=== PATIENT | female | born 1940 | race Caucasian/White ===

== ENCOUNTER 2020-09-18 18:24 | Emergency (ER) | payer BC, SELFPAY ==
[2020-09-18 18:32] VITALS: BP 156/70; PULSE 86; RESP 16; TEMP 36.9; O2SAT 98; BMI 25.3
[2020-09-18 22:00] VITALS: BP 147/70; PULSE 70; RESP 16; TEMP 36.5; O2SAT 96
--- NOTE | 2020-09-18 23:45 | PC.NURSE ---
at bedside for wound repair.
--- NOTE | 2020-09-19 | PC.NURSE ---
Wound to upper lip repaired with 7 stitches, aware of plan to DC home.
--- NOTE | 2020-09-19 00:06 | ED.GENADULT ---
HPI - General Adult General Chief complaint: Fall Stated complaint: fall - mouth lac Time Seen by Provider: 09/18/20 23:30 Source: patient Mode of arrival: EMS Limitations: no limitations History of Present Illness HPI narrative: 80-year-old female who presents emergency department for evaluation of a laceration to her upper lip after a fall at home. The patient states she was stepping over the dog gate when her back foot got caught causing her to fall forward onto her face. She states she felt onto a tile floor and shipped her front tooth. She also cut her upper lip. She denied any loss of consciousness. She states that the lip was bleeding profusely therefore she came to the hospital for evaluation. Since the injury, she has had no complaints. She denied headache, nausea, vomiting, numbness or weakness. She states her tetanus status is up-to-date. Related Data Allergies Allergy/AdvReac Type Severity Reaction Status Date / Time No Known Allergies Allergy Verified 09/18/20 18:36 Review of Systems Review of Systems: Yes all other systems are reviewed and are negative Neurologic: Reports Abnormal speech present [facility] Past Medical History [facility] Narrative: The patient lives at home. She denies tobacco use. She states she drinks 1 glass of wine at night. She denies drug use. Medical History HTN (hypertension) Social History Social History Advance Directives: No Physical Exam Vital Signs: Vital Signs: Last Vital Signs Temp 97.7 F 09/18/20 22:00 Pulse 70 09/18/20 22:00 Resp 16 09/18/20 22:00 BP 147/70 H 09/18/20 22:00 Pulse Ox 96 09/18/20 22:00 Body Mass Index 25.3 Const: General: cooperative Orientation/consciousness: oriented to person and oriented to place Limitations: no limitations HENMT: Head: Yes normocephalic and Yes atraumatic Ears: hearing grossly normal bilaterally General nose exam: Normal external nose present Mouth: Normal oral and palatal mucosa present and lip abnormal (1.5 cm U shaped flap laceration to upper lip, center) Teeth and gingiva: other (The patient wears dentures, she has a chipped dentures) Throat: Yes posterior oropharynx normal Eyes: General: appearance normal, both eyes and all related structures Alignment and Position: alignment normal Eyelids: Yes eyelids normal Conjunctivae: conjunctivae normal Sclerae: sclerae normal Corneas: corneas normal Pupils: Equal, round and reactive pupils present EOM: EOMs intact bilaterally Neck: Neck: Yes normal visual inspection Neuro: General: oriented to person and oriented to place Cranial nerves: Yes CN's II-XII intact bilaterally and Yes Equal, round and reactive pupils present Cognition (Neuro): normal cognition Speech: Abnormal speech present Gait exam (Neuro): Normal gait present Motor exam (neuro): 5/5 motor strength present throughout Course Course Course Narrative: 80-year-old female who presents emergency department for evaluation of upper lip laceration after a trip and fall at home. The patient had no loss of consciousness and has been no symptoms since the fall therefore I did not get a CT scan of the head on this patient. The patient's laceration was repaired with seven, 5.0 Vicryl Rapide sutures. The patient tolerated the procedure well. Bacitracin was applied to the lip and the patient was advised to apply bacitracin twice a day for 7 days . I told the the sutures should dissolve in 7 days and if they are still intact then she should see her doctor to have the sutures removed. Procedures Laceration Upper lip laceration: Site: lip (U shaped upper lip laceration, center) Size (cm): 1.5 Description: flap Depth: simple, single layer Local Anesthetic: lidocaine 1% and with epi Amount of anesthesia used (mL): 3 Pre-repair: wound explored Skin layer closed with: other (Vicryl Rapide) Size (cm): 5-0 Number of sutures: 7 Technique: simple, interrupted
[2020-09-19 00:08] VITALS: BP 157/67; PULSE 63; RESP 16; O2SAT 98
[2020-09-19] MEDS: Bacitracin Oint 14 GM TUBE 1 APPL TOPICAL (00:21)
--- NOTE | 2020-09-19 00:21 | PC.NURSE ---
ABX ointment applied to lip, pt provided with DC isntructions. VSS.
== END 2020-09-19 00:24 | disposition home or self-care (01) ==
PROVIDERS: Emergency Provider Emergency Medicine Emergency Medical Services; PCP Internal Medicine
DX: S01.511A Laceration without foreign body of lip, initial encounter (principal); W18.00XA Striking against unspecified object with subsequent fall, initial encounter; Y93.9 Activity, unspecified; Y92.009 Unspecified place in unspecified non-institutional (private) residence as the place of occurrence of the external cause; Y99.9 Unspecified external cause status
CPT/HCPCS: 12011; 99284

== ENCOUNTER 2021-03-23 08:59 | Outpatient (REF) | payer BC, SELFPAY ==
--- NOTE | ~2021-03-23 | MM_ITS ---
EXAMINATION: MM SCREENING DIGITAL BREAST TOMOSYNTHESIS, BILATERAL CLINICAL INFORMATION: Screening. Asymptomatic. The lifetime risk of breast cancer based on the Tyrer-Cuzick Model is 2%. COMPARISON: Mammography: 03/10/2020, 01/12/2019, 12/24/2017 TECHNIQUE: Digital breast tomosynthesis is performed in both the craniocaudal and mediolateral oblique views along with computer-aided detection (CAD). Synthesized 2D images are generated from the tomosynthesis. Additional left MLO view is provided. FINDINGS: There are scattered areas of fibroglandular density (ACR BI-RADS breast composition Category b). There are no significant masses, abnormal calcifications, or other abnormalities. Parenchymal pattern is similar to prior studies. There is no developing density. No significant changes. MM/MM tomosynthesis screening BI IMPRESSION: No mammographic evidence of malignancy. ASSESSMENT: BI-RADS 1: Negative RECOMMENDATION: Routine annual mammography screening. This patient's information was entered into a reminder system with a target due date for their next mammogram.
== END 2021-03-23 09:00 | disposition home or self-care (01) ==
LOC: HO.MAMMO 08:59
PROVIDERS: PCP Internal Medicine; Visit Provider Internal Medicine
DX: Z12.31 Encounter for screening mammogram for malignant neoplasm of breast (principal)
CPT/HCPCS: 77063; 77067

== ENCOUNTER 2021-05-23 10:18 | Outpatient (REF) | payer BC, SELFPAY ==
--- NOTE | ~2021-05-23 | MM_ITS ---
EXAMINATION: BONE DENSITOMETRY CLINICAL INDICATION: Osteopenia. COMPARISON: Previous BD dated 11/03/2015 and baseline BD dated 10/18/2009. TECHNIQUE: Using a FID3 DXA System (software version: 13.1) manufactured by [employer], dual-energy x-ray absorptiometry was performed of the lumbar spine and left hip. The images are of good technical quality. Summary results are attached. FINDINGS: AP SPINE L1-L2 (excluding L3 and L4): The data of L1-L4 has been changed to exclude the L3 and L4 vertebral bodies, because degenerative changes at these levels may cause overestimation of lumbar spine density. Current: BMD 0.930 g/cm2, Z-score -0.4, T-score -2.0, osteopenia, 8.3% increase from previous, 4.3% decrease from baseline (<5% change is not significant). Prior: BMD 0.859 g/cm2. Baseline: BMD 0.972 g/cm2. LEFT FEMUR, NECK: Current: BMD 0.820 g/cm2, Z-score 0.4, T-score -1.6, osteopenia. Prior: BMD 0.740 g/cm2. Baseline: BMD 0.862 g/cm2. LEFT FEMUR, TOTAL: Current: BMD 0.766 g/cm2, Z-score -0.2, T-score -1.9, osteopenia, 5.1% increase from previous, 5.3% decrease from baseline (<5% change is not significant). Prior: BMD 0.729 g/cm2. Baseline: BMD 0.809 g/cm2. IDENTIFIED RISK FACTORS: Height loss, menopause. HISTORY OF FRACTURE: None listed. MEDICATIONS: Calcium or multivitamin. MM/XR DEXA axial skeleton IMPRESSION: 1. DIAGNOSIS: Osteopenia based on the lowest T-score value of -2.0 in the lumbar spine applying World Health Organization criteria. 2. 10-YEAR FRACTURE RISK PREDICTION, FRAX: Major osteoporotic fracture (clinical spine, forearm, hip or shoulder) 13.9%. Hip fracture 3.4%. 3. Treatment Recommendations: NOF guidelines recommend consideration for treatment in postmenopausal women and men age 50 and older presenting with the following: -A hip or vertebral (clinical or morphometric) fracture. -T-score less than or equal to -2.5 at the femoral neck or spine after appropriate evaluation to exclude secondary causes. -Low bone mass at the hip or spine and a 10-year fracture probability by FRAX of greater than or equal to 3% for hip fracture or greater than or equal to 20% for major osteoporotic fracture based on the [place] adapted WHO algorithm. 4. Other Recommendations: All treatment decisions require clinical judgment and consideration of individual patient factors, including patient preferences, comorbidities, previous drug use, risk factors not captured in the FRAX model (e.g. frailty, falls, vitamin D deficiency, increased bone turnover, interval significant decline in bone density) and possible under or overestimation of fracture risk by FRAX. Additional medical evaluation for secondary cause of low bone mineral density may be appropriate. FUTURE SCAN RECOMMENDATION: People with diagnosed cases of osteoporosis or at high risk for fracture should have regular bone mineral density tests. For patients eligible for Medicare, routine testing is allowed once every 2 years. The testing frequency can be increased to one year for patients who have rapidly progressing disease, those who are receiving or discontinuing medical therapy to restore bone mass, or have additional risk factors.
== END 2021-05-23 10:19 | disposition home or self-care (01) ==
LOC: HO.MAMMO 10:18
PROVIDERS: PCP Internal Medicine; Visit Provider Internal Medicine
DX: Z13.820 Encounter for screening for osteoporosis (principal); Z78.0 Asymptomatic menopausal state; M85.80 Other specified disorders of bone density and structure, unspecified site
CPT/HCPCS: 77080

== ENCOUNTER 2022-04-09 11:53 | Outpatient (REF) | payer BC, SELFPAY ==
--- NOTE | ~2022-04-09 | MM_ITS ---
EXAMINATION: MM SCREENING DIGITAL BREAST TOMOSYNTHESIS, BILATERAL CLINICAL INFORMATION: Screening. Asymptomatic. The lifetime risk of breast cancer based on the Tyrer-Cuzick Model is 2%. COMPARISON: Mammography: 03/23/2021, 03/10/2020, 01/12/2019 TECHNIQUE: Digital breast tomosynthesis is performed in both the craniocaudal and mediolateral oblique views along with computer-aided detection (CAD). Synthesized 2D images are generated from the tomosynthesis. FINDINGS: There are scattered areas of fibroglandular density (ACR BI-RADS breast composition Category b). There are no significant masses, abnormal calcifications, or other abnormalities. Parenchymal pattern is similar to prior studies. There is no developing density or architectural abnormality. The axilla and skin contours are unremarkable. No significant changes. MM/MM tomosynthesis screening BI IMPRESSION: No mammographic evidence of malignancy. ASSESSMENT: BI-RADS 1: Negative RECOMMENDATION: Routine annual mammography screening. This patient's information was entered into a reminder system with a target due date for their next mammogram.
== END 2022-04-09 11:54 | disposition home or self-care (01) ==
LOC: HO.MAMMO 11:53
PROVIDERS: PCP Internal Medicine; Visit Provider Internal Medicine
DX: Z12.31 Encounter for screening mammogram for malignant neoplasm of breast (principal)
CPT/HCPCS: 77063; 77067

== ENCOUNTER → 2023-08-22 08:50 | Outpatient (AMB) | payer BC, SELFPAY ==
--- NOTE | 2023-08-22 11:01 | AM.OFFWIN_ITS ---
Intake Vital Signs 08/22/23 11:12 Weight 163 lb BP 126/60 Blood Pressure Location Lt brachial Position Sitting Pulse 79 Pulse Source Pulse Oximeter Temp 97.7 F Temp Source Oral Pulse Oximetry (%) 96 Oxygen Delivery Method Room Air Intake Visit Reasons: EST/right arm pain from pneumonia vaccine Intake Note: pt is here today for rt arm pain from pneumonia vaccine started Patient Tobacco Use Status: Never used Tobacco Allergies No Known Allergies Allergy (Verified 08/22/23 11:16) Do you need a note to return to daycare/school/sports/work: No HPI EST/right arm pain from pneumonia vaccine HPI Details This is an 82 year-old female patient who presents today for a sick visit. She reports a 2 week history of productive cough, particularly at nighttime. She has been trying Mucinex for this. She denies any fever or chills. She also reports a sore left arm since Saturday, after she had the pneumonia vaccine. She has taken some Tylenol for this, and recently started applying some ice. Denies any rash, redness or warmth of site. Denies any s/e of vaccine other than this. [facility] Medical History HTN (hypertension) Social History Patient Tobacco Use Status: Never used Tobacco Review of Systems Const All systems reviewed & are unremarkable except as noted in HPI and below Physical Exam Vital Signs: Last Vital Signs Temp 97.7 F 08/22/23 11:12 Pulse 79 08/22/23 11:12 BP 126/60 08/22/23 11:12 Pulse Ox 96 08/22/23 11:12 Oxygen Delivery Method Room Air 08/22/23 11:12 Const General: cooperative, healthy appearing and no acute distress HEENT Head: Yes normal to inspection Ears: hearing grossly normal bilaterally and TM's normal bilaterally General nose exam: Normal external nose present and Normal nasal mucous membranes and turbinates present Face and sinus: Yes normal facial exam Mouth: Normal oral and palatal mucosa present Throat: Yes posterior oropharynx normal Neck Neck: Yes no lymphadenopathy Resp Effort & Inspection: normal respiratory effort, able to speak in complete sentences and Actively coughing Quality: actively coughing Auscultation: wheezes upper bilaterally Cardio Jugular venous distension: no JVD Palpation: normal PMI Rate: regular rate Rhythm: regular rhythm Skin General skin exam: no rashes or lesions noted Extrem Other: left deltoid slightly sore to palpation following pneuovac 3 days ago. No redness, warmth, bruising, induration. General: Yes capillary refill normal and Yes no clubbing, cyanosis or edema Psych Appearance: grossly normal Mental Status: mental status grossly normal Speech and movement: Normal speech and movement present Assessment & Plan Assessment & Plan (1) Upper respiratory infection: Code(s): J06.9 - Acute upper respiratory infection, unspecified Qualifiers: URI type: unspecified viral URI Qualified Code(s): J06.9 - Acute upper respiratory infection, unspecified Plan: DuoNeb treatment provided to patient in the office today due to bilateral upper wheezing. This provided significant benefit to the patient, and there was significantly less wheezing following treatment. I have started patient on azithromycin, and I will also send her an inhaler for home use. We reviewed indications, use, possible side effects of medications. She can continue to take Tylenol and Mucinex as needed. If she does not improve with time and these measures, she should return to the clinic for further evaluation. She has some soreness at injection site on left arm following pneumonia vaccine. No redness, warmth, discoloration. Advised continued intermittent ice application and tylenol as needed. If this worsens she should return for evaluation. She verbalizes understanding and agrees to plan. Orders: Orders AMB Nebulizer Treatment Today J06.9 - Acute upper respiratory infection, unspecified Medications: New albuterol sulfate 90 mcg/actuation 1 inh inhalation QID PRN 6.7 grams 0RF shortness of breath or wheezing J06.9 - Acute upper respiratory infection, unspecified azithromycin For 250 mg dose pack: take 500 mg today (day 1), then 250 mg for 4 days (days 2-5) PO 6 tabs 0RF J06.9 - Acute upper respiratory infection, unspecified ipratropium-albuterol 0.5 mg-3 mg(2.5 mg base)/3 mL 3 mL inhalation ONCE 3 mL 0RF J06.9 - Acute upper respiratory infection, unspecified Coding Level of Care Code Est Pt Level 3 (79286) Diagnoses Viral upper respiratory tract infection J06.9 URI type: unspecified viral URI
[2023-08-22 11:12] VITALS: BP 126/60; PULSE 79; TEMP 36.5; O2SAT 96
== END ==
PROVIDERS: PCP Internal Medicine; Visit Provider Nurse Practitioner Family
DX: J06.9 Acute upper respiratory infection, unspecified (principal)
CPT/HCPCS: 99213

== ENCOUNTER 2023-08-27 08:56 | Outpatient (AMB) | payer BC, SELFPAY ==
--- NOTE | 2023-08-27 09:59 | AM.OFFWIN_ITS ---
Intake Vital Signs 08/27/23 10:05 Height 5 ft 7 in Weight 161 lb BMI 25.2 BP 128/60 Blood Pressure Location Lt brachial Position Sitting Pulse 76 Pulse Source Pulse Oximeter Temp 97.4 F Temp Source Temporal Artery Scan Pulse Oximetry (%) 96 Oxygen Delivery Method Room Air Intake Visit Reasons: EP, cough (masked) Intake Note: pt is here today for cough started Patient Tobacco Use Status: Never used Tobacco Allergies No Known Allergies Allergy (Verified 08/27/23 10:30) Medication List - Last Reconciled 08/27/[address] MD albuterol sulfate 90 mcg/actuation 1 inh inhalation QID PRN amlodipine 5 mg PO DAILY aspirin (Adult Aspirin Regimen) 81 mg PO DAILY azithromycin For 250 mg dose pack: take 500 mg today (day 1), then 250 mg for 4 days (days 2-5) PO losartan 100 mg PO DAILY Do you need a note to return to daycare/school/sports/work: No HPI EP, cough (masked) HPI Details 82-year-old female presents to the [facility] for a sick visit. Patient was seen last week for an upper respiratory tract infection. She was given antibiotics, inhalers. She seems to be improving but her cough symptoms have not completely stopped. Continues to feel tired. This morning started a postnasal drip. No fevers or chills. [facility] Medical History HTN (hypertension) Social History Patient Tobacco Use Status: Never used Tobacco Physical Exam Vital Signs: Last Vital Signs Temp 97.4 F 08/27/23 10:05 Pulse 76 08/27/23 10:05 BP 128/60 08/27/23 10:05 Pulse Ox 96 08/27/23 10:05 Oxygen Delivery Method Room Air 08/27/23 10:05 BMI result Body Mass Index 25.2 Const General: cooperative and healthy appearing Nutritional Appearance: well nourished Orientation/consciousness: patient oriented x3 Limitations: no limitations HEENT Head: Yes normal to inspection Eyes General: appearance normal, both eyes and all related structures Neck Neck: Yes normal visual inspection Chest Chest palpation & inspection: normal palpation of entire chest wall Resp Other: Scattered wheeze bilaterally. Effort & Inspection: normal respiratory effort Neuro General: patient oriented x3 Assessment & Plan Assessment & Plan (1) Acute bronchitis: Code(s): J20.9 - Acute bronchitis, unspecified Plan: X-ray images personally reviewed by me. Prednisone and cough medicine with codeine ordered. If symptoms do not improve to follow-up here. Orders: Orders XR chest 2V Today R05.9 - Cough, unspecified Coding Level of Care Code Est Pt Level 4 (54637) Diagnoses Acute bronchitis J20.9
[2023-08-27 10:05] VITALS: BP 128/60; PULSE 76; TEMP 36.3; O2SAT 96; BMI 25.2
== END 2023-08-27 10:50 | disposition home or self-care (01) ==
PROVIDERS: PCP Internal Medicine; Visit Provider Internal Medicine
DX: J20.9 Acute bronchitis, unspecified (principal)
CPT/HCPCS: 99214

== ENCOUNTER 2023-08-27 10:29 | Outpatient (REF) | payer MEDICARE, SELFPAY ==
--- NOTE | ~2023-08-27 | XR_ITS ---
EXAMINATION: XR CHEST CLINICAL INFORMATION: Cough. COMPARISON: None available. TECHNIQUE: 2 views of the chest were obtained. FINDINGS: No significant abnormality is noted involving the heart, lungs, mediastinum, bony thorax or soft tissues. XR/XR chest 2V IMPRESSION: Unremarkable chest examination.
== END 2023-08-27 10:30 | disposition home or self-care (01) ==
LOC: HO.HMGCX 10:29
PROVIDERS: PCP Internal Medicine; Visit Provider Internal Medicine
DX: R05.9 Cough, unspecified (principal)
CPT/HCPCS: 71046

== ENCOUNTER 2024-04-15 09:01 | Outpatient (AMB) | payer MEDICARE, SELFPAY ==
--- NOTE | 2024-04-15 10:01 | MHC.OFFWIV ---
Intake Vital Signs 04/15/24 10:03 Height 5 ft 7 in Weight 168 lb BMI 26.3 BP 132/80 Blood Pressure Location Rt brachial Position Sitting Pulse 65 Pulse Source Pulse Oximeter Temp 98.4 F Temp Source Oral Pulse Oximetry (%) 96 Oxygen Delivery Method Room Air Intake Visit Reasons: EP Chest congestion and Cough Intake Note: pt c/o chest congestion and cough. Ongoing x 4 wks Patient Tobacco Use Status: Never used Tobacco Allergies No Known Allergies Allergy (Verified 04/15/24 10:01) Do you need a note to return to daycare/school/sports/work: No HPI EP Chest congestion and Cough HPI Details This note is constructed using voice recognition software. While every effort has been made to ensure accuracy, sba underwriter errors may have been included. The patient is a 83 year old female who presents to the clinic today with chest congestion and cough for the last 4 weeks. Patient reports she had a similar URI last summer. At this point she started off with cough and congestion, she has tried everything at home including some leftover guaifenesin with codeine, sinus rinse, with Neti pot, Flonase nasal spray, cough syrup, Vicks vapor rub, hydration, humidification, and her symptoms do not seem to be resolving. She denies dyspnea at rest, fever, chills, body aches. She has had no sick contacts. COUNT INCLUDES [facility] Medical History HTN (hypertension) Social History Patient Tobacco Use Status: Never used Tobacco Review of Systems Const All systems reviewed & are unremarkable except as noted in HPI and below Physical Exam Vital Signs: Last Vital Signs Temp 98.4 F 04/15/24 10:03 Pulse 65 04/15/24 10:03 BP 132/80 04/15/24 10:03 Pulse Ox 96 04/15/24 10:03 Oxygen Delivery Method Room Air 04/15/24 10:03 BMI result Body Mass Index 26.3 Const General: cooperative, healthy appearing, comfortable and no acute distress Orientation/consciousness: patient oriented x3 Limitations: no limitations HEENT Head: Yes normal to inspection Ears: hearing grossly normal bilaterally, external ears normal and TM's normal bilaterally General nose exam: Normal external nose present, Normal nares present and No nasal discharge present Face and sinus: Yes normal facial exam and Yes sinuses nontender Mouth: Normal oral and palatal mucosa present and moist mucous membranes Throat: Yes tonsils normal, Yes uvula midline and Yes posterior oropharynx abnormal (Erythema) Eyes General: appearance normal, both eyes and all related structures Neck Neck: Yes normal visual inspection Resp Effort & Inspection: normal respiratory effort, able to speak in complete sentences, Actively coughing, no respiratory distress, not tachypneic, no tripod positioning and no use of accessory muscles Auscultation: wheezes (Bilateral) expiratory wheezes Cardio Jugular venous distension: no JVD Rate: regular rate Rhythm: regular rhythm Heart sounds: S1 normal heart sound present, S2 normal heart sound present, no click, no gallops, no murmurs and no rubs Skin General skin exam: no rashes or lesions noted, elasticity normal and turgor normal Neuro General: patient oriented x3 Extrem General: Yes normal to inspection and Yes no clubbing, cyanosis or edema Assessment & Plan Assessment & Plan (1) Upper respiratory infection: Code(s): J06.9 - Acute upper respiratory infection, unspecified Qualifiers: URI type: unspecified URI Qualified Code(s): J06.9 - Acute upper respiratory infection, unspecified Plan: Etiology unclear, would not test for viral panel given timeline since onset. Chest x-ray ordered given wheezing, reviewed by me, no obvious signs of pneumonia. Prednisone burst for symptomatic treatment, Tessalon Perles for cough, and albuterol as needed. Advised patient to treat allergies ongoing. Advised patient to follow up with worsening symptoms or failure to resolve. Plan See above for full details and plan. Orders: Orders XR chest 2V Today J06.9 - Acute upper respiratory infection, unspecified Medications: New albuterol sulfate 90 mcg/actuation 1 to 2 puffs inhaled 4 times a day PRN; 6.7 grams 0RF shortness of breath or wheezing benzonatate 100 mg PO BID 5 days PRN 10 caps 0RF cough prednisone 40 mg (2 x 20 mg) PO DAILY 5 days 10 tabs 0RF Coding Level of Care Code Est Pt Level 4 (83327) Diagnoses Upper respiratory tract infection, unspecified type J06.9 URI type: unspecified URI
[2024-04-15 10:03] VITALS: BP 132/80; PULSE 65; TEMP 36.9; O2SAT 96; BMI 26.3
== END 2024-04-15 11:04 | disposition home or self-care (01) ==
PROVIDERS: PCP Internal Medicine; Visit Provider Registered Nurse
DX: J06.9 Acute upper respiratory infection, unspecified (principal)
CPT/HCPCS: 99214

== ENCOUNTER 2024-04-15 10:30 | Outpatient (REF) | payer MEDICARE, SELFPAY ==
--- NOTE | ~2024-04-15 | XR_ITS ---
EXAMINATION: XR CHEST CLINICAL INFORMATION: Upper respiratory tract infection COMPARISON: 08/27/2023 TECHNIQUE: 2 views of the chest were obtained. FINDINGS: Lungs clear. No pleural effusions. Heart and pulmonary vessels normal. XR/XR chest 2V IMPRESSION: No active disease.
== END 2024-04-15 10:31 | disposition home or self-care (01) ==
LOC: HO.HMGCX 10:30
PROVIDERS: PCP Internal Medicine; Visit Provider Registered Nurse
DX: J06.9 Acute upper respiratory infection, unspecified (principal)
CPT/HCPCS: 71046